=== PATIENT | female | born 1950 | race Caucasian/White ===

== ENCOUNTER 2022-05-19 21:39 | Emergency (ER) | payer MEDICARE ==
--- NOTE | 2022-05-19 22:12 | ED Physician Documentation ---
PD HPI NVD - Stated complaint Stated Complaint: N/D , LACK OF APPETITE - Chief complaint Chief Complaint: Abd Pain - History obtained from History obtained from: Patient - History of Present Illness Timing - onset: How many days ago (3) Timing - duration: Days Timing - details: Gradual onset Pain level max: 0 Pain level now: 0 Associated symptoms: No: Fever, Abdominal pain, Melena, Hematochezia Similar symptoms before: Has not had sx before Recently seen: Not recently seen - Additonal information Additional information: recently returned from [place], patient c/o 3 days of diarrhea and poor appetite x 10 days. She has nausea but no vomiting. Denies pain, fever, blood in stool. She had a single dose of an doxycycline as prophylaxis before going on a river excursion while she was in [place]. She has been taking imodium for the diarrhea without improvement Review of Systems Constitutional: denies: Fever, Chills, Sweats Cardiac: reports: Reviewed and negative Respiratory: reports: Reviewed and negative GI: reports: Nausea, Diarrhea. denies: Abdominal Pain, Vomiting, Hematemesis, Bloody / black stool : denies: Dysuria, Frequency PD PAST MEDICAL HISTORY - Past Medical History Past Medical History: No Endocrine/Autoimmune: HyPOthyroidism - Present Medications Home Medications: Ambulatory Orders Medication Instructions Recorded Confirmed Azithromycin 500 mg PO DAILY 2 Days #4 tablet 05/20/22 Diphenoxylate/Atropine [Lomotil] 1 each PO QID PRN #10 tablet 05/20/22 Ondansetron Odt [Zofran Odt] 4 mg TL Q6H PRN #14 tablet 05/20/22 - Allergies Allergies/Adverse Reactions: Allergies Allergy/AdvReac Type Severity Reaction Status Date / Time aspirin Allergy Edema Verified 05/19/22 21:44 Penicillins Allergy Edema Verified 05/19/22 21:43 - Living Situation Living Arrangement: reports: At home PD ED PE NORMAL - Vitals Vital signs reviewed: Yes - General General: Alert and oriented X 3, No acute distress, Well developed/nourished - HEENT HEENT: Moist mucous membranes - Neck Neck: Supple, no meningeal sign - Cardiac Cardiac: RRR, No murmur - Respiratory Respiratory: No respiratory distress, Clear bilaterally - Abdomen Abdomen: Soft, Non tender, Non distended - Derm Derm: Normal color, Warm and dry Results - Vitals Vitals: Oxygen O2 Source Room air - Labs Labs: Laboratory Tests 05/19/22 05/19/22 22:15 22:15 WBC 8.9 RBC 4.56 Hgb 13.7 Hct 41.0 MCV 89.9 MCH 30.0 MCHC 33.4 RDW 12.4 Plt Count 359 MPV 9.7 Neut # (Auto) 6.6 Lymph # (Auto) 1.1 L [place] # (Auto) 1.1 H Eos # (Auto) 0.0 Baso # (Auto) 0.0 Absolute Nucleated RBC 0.00 Nucleated RBC % 0.0 Sodium 133 L Potassium 4.0 Chloride 97 L Carbon Dioxide 26 Anion Gap 10.0 BUN 8 Creatinine 1.1 H Estimated GFR (MDRD) 49 L Glucose 114 H Calcium 9.3 Total Bilirubin 0.8 AST 26 ALT 23 Alkaline Phosphatase 51 Total Protein 7.1 Albumin 3.7 Globulin 3.4 Albumin/Globulin Ratio 1.1 Lipase 26 PD MEDICAL DECISION MAKING - ED course Complexity details: reviewed results, re-evaluated patient, considered differential, d/w patient ED course: Given 1 liter NS IV bolus, zofran 4mg IV x 2 doses. She reported good relief of her nausea with first dose of zofran, resolution after second dose. She is given PO lomotil, as well. Her blood tests are without concerning findings (normal CBC; she has 1.1 creatinine with GFR 49; patient says she already knows her most recent GFR was 49). She is unable to provide a stool sample in ED. Based on her chief complaint of 3 days diarrhea and recent [id number] travel including fresh water exposure (was rafting), will cover potential bacterial pathogens with three-day course of azithromycin, first dose given in ED. Results d/w patient, return precautions discussed. Departure - Departure Disposition: 01 Home, Self Care Clinical Impression: Diarrhea Qualifiers: Diarrhea type: presumed infectious Qualified Code(s): R19.7 - Diarrhea, unspecified Condition: Good Instructions: ED Vomiting Diarrhea Nonspecific Ad Follow-Up: MONICA BAKER MD [Primary Care Provider] - Prescriptions: Azithromycin 500 mg PO DAILY 2 Days #4 tablet Diphenoxylate/Atropine [Lomotil] 1 each PO QID PRN #10 tablet PRN Reason: Diarrhea Ondansetron Odt [Zofran Odt] 4 mg TL Q6H PRN #14 tablet PRN Reason: Nausea / Vomiting Comments: The results of mayra's blood tests are unremarkable. You have a mildly low sodium (133) and minimally elevated creatinine (kidney function test, 1.1). Based on your description of symptoms and the recent travel, you are being treated for a suspected bacterial cause of diarrhea. You were given a dose of antibiotic in the ER (azithromycin) and a prescription for two more days of this medication has been electronically submitted to [facility] pharmacy in [place]. I have also sent prescriptions for the anti-nausea medication (ondansetron) as wel l as an anti-diarrheal medication (lomotil). If your symptoms worsen, or if you develop fever, blood in the stool, or other concerning signs/symptoms, please return to the ER for reevaluation Discharge Date/Time: 05/20/22 01:27
[2022-05-19] MEDS ORDERED: SODIUM CHLORIDE 0.9% 1,000 ML IV STA (22:32)
[2022-05-19] MEDS ORDERED: ONDANSETRON 4 MG/2 ML VIAL IVP STA (22:32)
[2022-05-19 22:38] LABS: BASOPHILS % (AUTO) 0.4 %; EOSINOPHILS % (AUTO) 0.3 %; HGB - HEMOGLOBIN 13.7 g/dL (12.0-16.0); LYMPHOCYTES # (AUTO) 1.1 10^3/uL (1.5-3.5); LYMPHOCYTES % (AUTO) 12.1 %; MEAN CORPUSCULAR HGB CONC 33.4 g/dL (32.0-36.0); MEAN CORPUSCULAR VOLUME 89.9 fL (81.0-99.0); MEAN PLATELET VOLUME 9.7 fL (7.9-10.8); MONOCYTES # (AUTO) 1.1 10^3/uL (0.0-1.0); MONOCYTES % (AUTO) 12.6 %; NEUTROPHILS # (AUTO) 6.6 10^3/uL (1.5-6.6); NEUTROPHILS % (AUTO) 74.3 %; PLT - PLATELET COUNT 359 10^3/uL (130-450); RED BLOOD COUNT 4.56 10^6/uL (4.20-5.40); RED CELL DISTRIBUTION WIDTH 12.4 % (12.0-15.0); WHITE BLOOD COUNT 8.9 x10^3/uL (4.8-10.8)
[2022-05-19 22:48] LABS: ALBUMIN 3.7 g/dL (3.2-5.5); ALBUMIN/GLOBULIN RATIO 1.1 (1.0-2.2); BILIRUBIN,TOTAL 0.8 mg/dL (0.2-1.0); CALCIUM 9.3 mg/dL (8.5-10.3); CREATININE 1.1 mg/dL (0.4-1.0); TOTAL PROTEIN 7.1 g/dL (6.7-8.2)
[2022-05-20 01:00] VITALS: BP 111/67
[2022-05-20] MEDS ORDERED: ONDANSETRON ODT 4 MG Prepack 2 TL PRN (01:04)
[2022-05-20] MEDS ORDERED: AZITHROMYCIN 250 MG TABLET PO STA (01:04)
[2022-05-20] MEDS ORDERED: DIPHENOX/ATROPINE 2.5/0.025 MG TABLET PO STA (01:04)
== END 2022-05-20 01:27 | disposition home or self-care (01) ==
LOC: ED 21:39
DX: R19.7 Diarrhea, unspecified (principal)
CPT/HCPCS: 36415; 80053; 83690; 85025; 96374; 99282; 99283; A9270; 87507